=== PATIENT | female | born 1965 | race Caucasian/White ===

== ENCOUNTER 2024-07-10 09:44 | Emergency (ER) | payer OTHER ==
[~2024-07-10] VITALS: Ht 152.4 cm; Wt 45.4 kg
[~2024-07-10 09:44] MED LIST: ASPI81CH PO; ATOR80 PO; CLIN150 PO; HUMALOG KW100 UNIT/1 SC; INSULANI SC; LANTUS SOL100 UNIT/1 SC; LEVE500 PO; MULVITA PO; Nicoderm Cq1 EAC1 TOP; OMEP20ER PO; VISBIOME 112.51 EACH PO
[2024-07-10] MEDS ORDERED: HYDHCL25 PO (11:09)
== END 2024-07-10 11:20 | disposition home or self-care (01) ==
LOC: ER 09:44
DX: F41.9 Anxiety disorder, unspecified (principal); E11.9 Type 2 diabetes mellitus without complications
CPT/HCPCS: 70450; 99283-25